=== PATIENT | male | born 1995 | race Caucasian/White ===

== ENCOUNTER 2019-04-04 13:49 | Emergency (ER) | payer SELFPAY ==
[~2019-04-04] VITALS: Ht 175.3 cm; Wt 95.5 kg
[2019-04-04 15:35] VITALS: BP 129/79
== END 2019-04-04 15:45 | disposition home or self-care (01) ==
LOC: EMS 13:51
DX: R76.11 Nonspecific reaction to tuberculin skin test without active tuberculosis (principal); F12.90 Cannabis use, unspecified, uncomplicated; F15.90 Other stimulant use, unspecified, uncomplicated; F17.210 Nicotine dependence, cigarettes, uncomplicated